=== PATIENT | male | born 1995 | race Caucasian/White ===

== ENCOUNTER 2022-03-05 15:16 | Emergency (ER) | payer SELFPAY ==
[~2022-03-05] VITALS: Ht 172.7 cm; Wt 86.2 kg
== END 2022-03-05 17:20 | disposition home or self-care (01) ==
LOC: ER 15:28
DX: R06.02 Shortness of breath (principal); R07.9 Chest pain, unspecified
CPT/HCPCS: 71045; 93005; 99283